=== PATIENT | male | born 1945 | race Two or more races ===

== ENCOUNTER → 2023-07-31 | Emergency (ER) | payer OTHER ==
[~2023-07-31] VITALS: Ht 165.1 cm; Wt 88.5 kg
[~2023-07-31] MED LIST: LISINOPRIL40 MG; MECLIZINE HCL 25 MG TABLET PO ONE; MELOXICAM15 MG; PANTOPRAZOLE SO40 M2
[2023-07-31 09:58] LABS: HEMATOCRIT 44.8 % (39.0-48.0); HEMOGLOBIN 15.5 g/dL (13-16.00); MEAN CORPUSCULAR HEMOGLOBIN 31.8 pg (27.00-32.0); MEAN CORPUSCULAR HGB CONC 34.6 g/dl (32.0-36.0); PLATELET COUNT 247 K/uL (150-450); RED BLOOD COUNT 4.87 M/uL (4.00-6.00)
[2023-07-31 10:26] LABS: BILIRUBIN TOTAL 0.4 mg/dL (0.3-1.2); CALCIUM 9.2 mg/dL (8.5-10.1); CREATININE SERUM 1.16 mg/dL (0.70-1.30); GFR 60.89; GLOBULINA 3.9 G/DL (2.4-3.5); POTASSIUM 4.09 mEq/L (3.5-5.1); TOTAL PROTEIN 7.9 gm/dL (6.4-8.2)
== END | disposition home or self-care (01) ==
LOC: ER 08:22
PROVIDERS: General Practice
DX: T75.3XXA Motion sickness, initial encounter (principal); Y92.814 Boat as the place of occurrence of the external cause; Y93.89 Activity, other specified; Y99.8 Other external cause status; R42 Dizziness and giddiness; M19.90 Unspecified osteoarthritis, unspecified site; I10 Essential (primary) hypertension; J45.909 Unspecified asthma, uncomplicated